=== PATIENT | female | born 1985 | race Caucasian/White ===

== ENCOUNTER 2016-09-18 16:37 | Emergency (ER) | payer OTHER ==
[~2016-09-18] VITALS: Ht 157.5 cm; Wt 72.7 kg
[2016-09-18 16:48] VITALS: BP 145/75
== END 2016-09-18 19:06 | disposition left against medical advice (07) ==
LOC: ED 16:37
DX: Z53.21 Procedure and treatment not carried out due to patient leaving prior to being seen by health care provider (principal)